=== PATIENT | male | born 1990 | race American Indian/Alaskan Native ===

== ENCOUNTER 2018-08-14 08:58 | Emergency (ER) | payer SELFPAY ==
[2018-08-14 09:18] VITALS: BP 155/84
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
--- NOTE | 2018-08-14 13:24 | XRay Report ---
FINAL REPORT PROCEDURE: XR SPINE LUMBOSACRAL 2-3V TECHNIQUE: Lumbosacral spine, three views HISTORY: low back pain COMPARISON: No prior studies are available for comparison. FINDINGS: No scoliosis. Vertebral body heights and alignment are maintained. Disc spaces are preserved. IMPRESSION: No acute abnormality is identified
== END 2018-08-14 13:35 | disposition home or self-care (01) ==
LOC: ED 08:58
DX: M54.5 Low back pain (principal); R07.89 Other chest pain; R03.0 Elevated blood-pressure reading, without diagnosis of hypertension; V89.2XXA Person injured in unspecified motor-vehicle accident, traffic, initial encounter; Y93.89 Activity, other specified; Y99.8 Other external cause status; Y92.410 Unspecified street and highway as the place of occurrence of the external cause
CPT/HCPCS: 71046; 72100; 99283